=== PATIENT | male | born 1960 | race Caucasian/White ===

== ENCOUNTER 2024-09-03 06:33 | Day surgery (SDC) | payer BC, SELFPAY ==
[2024-09-01 13:24] VITALS: BMI 29.2
--- OUTSIDE RECORDS SUMMARY | 2024-09-02 17:10 | XMS_ITS | Clinical Summary ---
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 Role Phone Unavailable Primary Care Provider Unavailabl e Immunizations Immunization Administration Dates Next Due COVID-19, mRNA (Moderna Spik evax) Seasonal, 50 mcg/0.5 mL (12+) 06/27/2023 Covid-19, mRNA (Pfizer Comir lorenza) Seasonal, 30 mcg/0.3 mL (12+) 06/04/2024,02/13/2024,12/21/2022 Influenza,MDCK,trivalent,PF (Flucelvax) 12/12/19 24 Influenza,injectable,quad,Prsrv Fr 12/19/2022 RSV Recombinant Adjuvant, 0.5 ML (Arexvy) 2024 Zoster (Shingrix) 06/27/2023,04/30/2023 Social History Tobacco Use Types Packs/Day Years Used Date Smoking Tobacco: Never Assessed Intimate Partner Violence Answer Date R ecorded Fear of Current or Ex-Partner Not on file Emotionally Abused Not on file 02/10/2023 Physically Abused Not on file 02/10/2023 Sexually Abused Not on file 02/10/2023 Feel Safe at Home Not on file 02/10/2023 Sex and Gender Information Value Date Recorded Sex Assigned at Not on file Legal Sex Male 7:00 AM EST Gender Identity Not on file Sexual Orientation Not on file Plan of Treatment Health Maintenance Due Date Last Done Comments Hepatitis C Screening 1960 DTaP/Tdap/Td (1 - Tdap) 1980 Colon Cancer Screening 08/03/2007 Pneumococcal 50+ years (1 of 1 - PCV) 2012 Zoster (Shingrix) Completed 06/27/2023, 04/30/2023 Influenza Completed 12/12/2023, 12/19/2022 COVID-19 Vaccine Completed 06/04/2024, , 06/27/2023, Additional history exists RSV Completed 06/04/2024 HPV Vaccine Aged Out No longer eligi ble based on patient's age to complete this topic Hep A Aged Out No longer eligi ble based on patient's age to complete this topic Hep B Aged Out No longer eligi ble based on patient's age to complete this topic Hib Aged Out No longer eligi ble based on patient's age to complete this topic Meningococcal ACWY Aged Out No longer eligible based on patient's age to complete this topic Zoster (Zostavax) Discontinued
[2024-09-03 06:35] VITALS: BP 150/79; PULSE 102; RESP 18; TEMP 35.8; O2SAT 98; BMI 29.5
[2024-09-03] MEDS: Lactated Ringers 1,000 ML 50 ML IVCONT (06:56)
--- NOTE | 2024-09-03 07:26 | MHC.SHP ---
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,screening Details of Present Illness: see H&P no changes Relevant Family History (Specify if Yes): No Relevant Social History: None Medical History: No relevant PMH History of Previous Operations: No relevant previous surgery Allergies: Allergies Allergy/AdvReac Type Severity Reaction Status Date / Time No Known Allergies Allergy Verified 09/01/24 13:24 Review of Systems Sugical H&P ROS: Negative: Constitution, Cardiovascular, Respiratory, Neurological, Psychiatric, Hem-Onc, Allergic/Immunologic, Gastrointestinal, Genitourinary, Musculoskeletal, Integumentary, Endocrine and Eyes/Ears/Nose/Throat Exam Surgical H&P Exam: Normal: HEENT, Normal: Heart, Normal: Lungs, Normal: Extremities, Normal: Abdomen, Normal: Skin and Normal: Neurological Plan Diagnosis/Plan: Unchanged I have reviewed the history and physical and performed a pertinent physical examination on my patient. No changes have occurred unless specified. Time Spent With Patient Time: Total time managing care of this patient today ____ minutes.
--- NOTE | 2024-09-03 07:51 | HO.ANESPROP2 ---
[facility] Past Medical History Medical History HTN (hypertension) History of Fang's esophagus Anxiety and depression GERD (gastroesophageal reflux disease) Renal calculi Functional capacity: independent ambulation Family History Family history of problems with anesthesia: No Surgical History Surgical History Hx of shoulder surgery (09/03/23) Hx of arthroscopy of shoulder Hx of arthroscopy of knee Hx of colonoscopy (~2019) History of esophagogastroduodenoscopy (EGD) (~2022) History of Problems with Anesthesia: No Social History Social History Patient Tobacco Use Status: Never used Tobacco Have you been hit, kicked, punched, or otherwise hurt by someone within the past year? If so, by whom?: No Are you DNR?: No Advance Directives: No Advance Directives Information Provided: Yes Meds Allergies Allergy/AdvReac Type Severity Reaction Status Date / Time No Known Allergies Allergy Verified 09/01/24 13:24 Active Medications: Current Medications Lactated Ringer's (Lr) 1,000 mls @ 50 mls/hr IVCONT .Q20H MANGO Last Admin: 09/03/24 06:56 Dose: 50 mls/hr Home Medications ?Medication ?Instructions ?Recorded ?Confirmed ?Last Taken ?Type B-complex with vitamin C 1 tab PO DAILY 09/01/24 09/01/24 Unknown History cholecalciferol (vitamin D3) 50 50 mcg PO DAILY 09/01/24 09/01/24 Unknown History mcg (2,000 unit) capsule (Vitamin D3) gabapentin 300 mg capsule 300 mg PO TID 09/01/24 09/01/24 09/03/24 History lamotrigine 25 mg tablet 50 mg PO BID 09/01/24 09/01/24 Unknown History losartan 25 mg tablet 25 mg PO DAILY 09/01/24 09/01/24 Unknown History omeprazole 20 mg tablet,delayed 20 mg PO DAILY 09/01/24 09/01/24 09/03/24 History release ondansetron 4 mg disintegrating 4 mg PO Q8H PRN Nausea And Vomiting 09/01/24 09/01/24 Unknown History tablet protriptyline 10 mg tablet 10 mg PO 09/01/24 Unknown History Exam Height,Weight and Vital Signs: Height 5 ft 3 in Weight 75.568 kg Last Vital Signs Temp 96.5 F L 09/03/24 06:35 Pulse 102 H 09/03/24 06:35 Resp 18 09/03/24 06:35 BP 150/79 H 09/03/24 06:35 Pulse Ox 98 09/03/24 06:35 O2 Del Method Room Air 09/03/24 06:35 Airway TM Dist: >3cm Neck ROM: Full Heart: RRR Lungs: CTS Assessment and Plan Assessment Anesthesia Assessment: Anesthesia Plan Discussed Final Anesthetic Review Family History of Problems with Anesthesia: No History of Problems with Anesthesia: No NPO: Yes ASA Class: II Final Preanesthetic Review: Meds/Allgs Chart Reviewed, Consent Obtained/Reviewed and Anes Risks/Benef Reviewed Patient Risk: Low Procedure Risk: Low Anesthetic Plan Anesthetic Plan: MAC: Disposition: Standard PACU
[2024-09-03 08:23] VITALS: BP 104/62; PULSE 99; RESP 16; TEMP 36.6; O2SAT 93
--- NOTE | 2024-09-03 08:27 | PM.OP ---
Brief Operative Note Date of Service: 09/03/24 Pre-op diagnosis: barretts screening Post-op diagnosis: same Procedure: EGD colon Surgeon: Omi Rankin MD Was an Bank Sales And Service Manager used for this Procedure?: No Estimated blood loss (mL): 2 Pathology: other Condition: stable Disposition: PACU
[2024-09-03 08:38] VITALS: BP 118/74; PULSE 87; RESP 16; O2SAT 93
--- NOTE | 2024-09-03 08:50 | HO.POSTANES ---
Post Anesthesia Evaluation Post Anesthesia Evaluation Date of Service: 09/03/24 Vital Signs: Vital Signs Temp Pulse Resp BP Pulse Ox O2 Del Method 09/03/24 08:38 87 16 118/74 93 Room Air 09/03/24 08:23 97.8 F 99 16 104/62 93 Room Air 09/03/24 06:35 96.5 F L 102 H 18 150/79 H 98 Room Air Anesthesia: Monitored Nausea/Vomiting: None Hydration: Adequate Anesthesia-Related Issues: No Anes. Related Issues
[2024-09-03 08:53] VITALS: BP 122/77; PULSE 85; RESP 16; TEMP 36.6; O2SAT 96
--- NOTE | 2024-09-03 08:54 | OP_ITS ---
DATE OF SERVICE: 09/03/2024 SURGEON: Omi Rankin MD INDICATIONS: Colon cancer screening and history of Fang esophagus. PREOPERATIVE DIAGNOSIS: POSTOPERATIVE DIAGNOSIS: PROCEDURE PERFORMED: Upper endoscopy with biopsy, colonoscopy to the terminal ileum with biopsy. ESTIMATED BLOOD LOSS: COMPLICATIONS: ANESTHESIA: Monitored anesthesia care. ASSISTANTS: SPECIMENS: DESCRIPTION OF PROCEDURE: History and physical ws performed. The risks and benefits of the procedure were explained to the patient. Informed consent was obtained. The patient was placed in the left lateral decubitus position. The Olympus video gastroscope was introduced into the esophagus, stomach, and duodenum. Examination was performed. The scope was removed. He was repositioned for colonoscopy. A digital rectal exam was performed and was found to be normal. The Olympus pediatric video colonoscope was introduced into the rectum and advanced to the cecum. The cecum was identified by transillumination, palpation, and identification of ileocecal valve. Examination was performed. The scope was removed. He tolerated both procedures well, returned to recovery area in stable condition. FINDINGS: Upper endoscopy: Esophagus: The esophagus showed an irregular EG junction. This was biopsied. Stomach: Stomach showed no evidence of masses or ulcers. There were several benign appearing gastric polyps in the body and fundus consistent with fundic gland polyps, two of these were biopsied. Duodenum: The bulb and 2nd portion were normal. Colonoscopy: The terminal ileum was examined and appeared normal. The visualized colonic mucosa was normal. The quality of prep was good. Two polyps were identified and removed with biopsy forceps, both measured less than 5 mm. These were located at 60 and 40 cm. Retroflexed examination showed some small internal hemorrhoids. IMPRESSION: 1. Fang esophagus. 2. Colon polyps. RECOMMENDATION: Follow up the biopsy results. MD KELVIN Wang/BINGL / [id number]
== END 2024-09-03 09:22 | disposition home or self-care (01) ==
PROVIDERS: PCP Physician Assistant; Visit Provider Internal Medicine Gastroenterology
PROC: (CPT 45380; principal; 2024-09-03 07:30)
DX: Z12.11 Encounter for screening for malignant neoplasm of colon (principal); Z86.0101 Personal history of adenomatous and serrated colon polyps; Z83.719 Family history of colon polyps, unspecified; D12.4 Benign neoplasm of descending colon; D12.5 Benign neoplasm of sigmoid colon; K64.8 Other hemorrhoids; Z87.19 Personal history of other diseases of the digestive system; K21.9 Gastro-esophageal reflux disease without esophagitis; D3A.092 Benign carcinoid tumor of the stomach; K31.7 Polyp of stomach and duodenum; K22.89 Other specified disease of esophagus; I10 Essential (primary) hypertension; F41.9 Anxiety disorder, unspecified; Z87.442 Personal history of urinary calculi; Z79.899 Other long term (current) drug therapy; Z98.890 Other specified postprocedural states
CPT/HCPCS: 45380; 43239; 88305; 88313; 88341; 88342; 88360; J2704

== ENCOUNTER 2024-09-22 11:51 | Day surgery (SDC) | payer BC, SELFPAY ==
--- OUTSIDE RECORDS SUMMARY | 2024-09-14 13:41 | XMS_ITS | Clinical Summary ---
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
[2024-09-20 14:42] VITALS: BMI 29.2
[2024-09-22 12:17] VITALS: BMI 29.7
[2024-09-22 12:34] VITALS: BP 152/91; PULSE 92; RESP 15; TEMP 36.5; O2SAT 95
[2024-09-22] MEDS: Lactated Ringers 1,000 ML 100 ML IVCONT (12:36)
--- NOTE | 2024-09-22 12:44 | HO.ANESPROP2 ---
Documented by User: Sidra Pop NP 09/20/24 14:19 HPI - Anesthesia Eval Consult details Narrative: 64yo M for Upper Endoscopy with polypectomy PMFSH Past Medical History Medical History HTN (hypertension) History of Fang's esophagus Anxiety and depression GERD (gastroesophageal reflux disease) Renal calculi Family History Family history of problems with anesthesia: No Surgical History Surgical History Hx of shoulder surgery (09/03/23) Hx of arthroscopy of shoulder Hx of arthroscopy of knee Hx of colonoscopy (~2019) History of esophagogastroduodenoscopy (EGD) (~2022) History of Problems with Anesthesia: No Social History Social History Patient Tobacco Use Status: Never used Tobacco Use of substances other than those prescribed or required for medical reasons: No Are you DNR?: No Advance Directives: No Advance Directives Information Provided: Yes Meds Allergies Allergy/AdvReac Type Severity Reaction Status Date / Time No Known Allergies Allergy Verified 09/22/24 12:16 Home Medications ?Medication ?Instructions ?Recorded ?Confirmed ?Last Taken ?Type B-complex with vitamin C 1 tab PO DAILY 09/01/24 09/20/24 Unknown History cholecalciferol (vitamin D3) 50 50 mcg PO DAILY 09/01/24 09/20/24 Unknown History mcg (2,000 unit) capsule (Vitamin D3) gabapentin 300 mg capsule 300 mg PO TID 09/01/24 09/20/24 09/03/24 History lamotrigine 25 mg tablet 50 mg PO BID 09/01/24 09/20/24 Unknown History losartan 25 mg tablet 25 mg PO DAILY 09/01/24 09/20/24 Unknown History omeprazole 20 mg tablet,delayed 20 mg PO DAILY 09/01/24 09/20/24 09/22/24 08:00 History release ondansetron 4 mg disintegrating 4 mg PO Q8H PRN Nausea And Vomiting 09/01/24 09/20/24 Unknown History tablet protriptyline 10 mg tablet 10 mg PO BID 09/01/24 09/20/24 Unknown History Assessment and Plan Assessment Anesthesia Assessment: Chart Reviewed Final Anesthetic Review Family History of Problems with Anesthesia: No History of Problems with Anesthesia: No Documented by User: Marisol Paul DO 09/22/24 12:45 PMFSH Past Medical History Medical History HTN (hypertension) History of Fang's esophagus Anxiety and depression GERD (gastroesophageal reflux disease) Renal calculi Family History Family history of problems with anesthesia: No Surgical History Surgical History Hx of shoulder surgery (09/03/23) Hx of arthroscopy of shoulder Hx of arthroscopy of knee Hx of colonoscopy (~2019) History of esophagogastroduodenoscopy (EGD) (~2022) History of Problems with Anesthesia: No Social History Social History Patient Tobacco Use Status: Never used Tobacco Use of substances other than those prescribed or required for medical reasons: No Are you DNR?: No Advance Directives: No Advance Directives Information Provided: Yes Meds Allergies Allergy/AdvReac Type Severity Reaction Status Date / Time No Known Allergies Allergy Verified 09/22/24 12:16 Home Medications ?Medication ?Instructions ?Recorded ?Confirmed ?Last Taken ?Type B-complex with vitamin C 1 tab PO DAILY 09/01/24 09/20/24 Unknown History cholecalciferol (vitamin D3) 50 50 mcg PO DAILY 09/01/24 09/20/24 Unknown History mcg (2,000 unit) capsule (Vitamin D3) gabapentin 300 mg capsule 300 mg PO TID 09/01/24 09/20/24 09/03/24 History lamotrigine 25 mg tablet 50 mg PO BID 09/01/24 09/20/24 Unknown History losartan 25 mg tablet 25 mg PO DAILY 09/01/24 09/20/24 Unknown History omeprazole 20 mg tablet,delayed 20 mg PO DAILY 09/01/24 09/20/24 09/22/24 08:00 History release ondansetron 4 mg disintegrating 4 mg PO Q8H PRN Nausea And Vomiting 09/01/24 09/20/24 Unknown History tablet protriptyline 10 mg tablet 10 mg PO BID 09/01/24 09/20/24 Unknown History Exam Exam Date and Time: 09/22/24 1240 Height,Weight and Vital Signs: Height 5 ft 3 in Weight 76 kg Vital Signs Temperature 97.7 F 09/22/24 12:34 Pulse Rate 92 09/22/24 12:34 Respiratory Rate 15 09/22/24 12:34 Blood Pressure 152/91 H 09/22/24 12:34 Pulse Oximetry 95 09/22/24 12:34 Oxygen Delivery Method Room Air 09/22/24 12:34 Temperature 97.7 F 09/22/24 12:34 Pulse Rate 92 09/22/24 12:34 Respiratory Rate 15 09/22/24 12:34 Blood Pressure 152/91 H 09/22/24 12:34 Pulse Oximetry 95 09/22/24 12:34 Oxygen Delivery Method Room Air 09/22/24 12:34 Airway Mallampati Class: I TM Dist: >3cm Neck ROM: Full Loose/Missing/Broken Teeth: No (patient denies any loose or broken teeth) Heart: S1S2 Lungs: CTAB Assessment and Plan Assessment Anesthesia Assessment: Anesthesia Plan Discussed and Chart Reviewed Final Anesthetic Review Family History of Problems with Anesthesia: No History of Problems with Anesthesia: No NPO: Yes ASA Class: II Final Preanesthetic Review: No Changes in Pt Med Stat, Meds/Allgs Chart Reviewed, Consent Obtained/Reviewed and Anes Risks/Benef Reviewed Patient Risk: Low Procedure Risk: Low Anesthetic Plan Anesthetic Plan: MAC: and Agree w/ Assess. and Plan Disposition: Standard PACU
--- NOTE | 2024-09-22 13:12 | MHC.SHP ---
Pre-Procedural Eval Section A - 24 Hr Update-Section A only Date of Service: 09/22/24 The patient is an INPATIENT: No Changes since office visit: Yes Cold of Flu in the past 2 weeks, Yes New Medical Problems, Yes Changes in Medication and Yes Patient answered all questions The patient has been examined within 24 hours of the surgical procedure. 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 No changes have occurred unless specified. Time Spent With Patient Time: Total time managing care of this patient today ____ minutes.
[2024-09-22 13:45] VITALS: BP 123/79; PULSE 92; TEMP 36.2; O2SAT 96
[2024-09-22 14:00] VITALS: BP 135/84; PULSE 81; RESP 18; TEMP 36.2; O2SAT 97
--- NOTE | 2024-09-22 21:57 | OP_ITS ---
DATE OF SERVICE: 09/22/2024 SURGEON: Omi Rankin MD INDICATIONS: Gastric neuroendocrine tumor (carcinoid). PREOPERATIVE DIAGNOSIS: POSTOPERATIVE DIAGNOSIS: PROCEDURE PERFORMED: Upper endoscopy with snare polypectomy and biopsy. ESTIMATED BLOOD LOSS: COMPLICATIONS: ANESTHESIA: Monitored anesthesia care. ASSISTANTS: SPECIMENS: DESCRIPTION OF PROCEDURE: A history and physical was performed. The risks and benefits of the procedure were explained to the patient. Informed consent was obtained. The Olympus video gastroscope was introduced into the . Examination was performed. The scope was removed. He tolerated the procedure well and was returned to the recovery area in stable condition. FINDINGS: Esophagus: The esophagus was normal. There was no esophagitis. The EG junction was regular. No biopsies were obtained as this had been biopsied at the earlier endoscopy. Stomach: The stomach showed multiple benign-appearing flat to slightly raised polyps in the body and fundus with no obvious malignant-appearing lesions. These were removed using a combination of cold snare and biopsy forceps. Polyps were located as noted on the pathology requisition. A total of 9 polyps were removed, all measured less than 10 mm. Duodenum: The bulb and 2nd portion were normal. IMPRESSION: 1. Gastric neuroendocrine tumor. 2. Gastric polyps. RECOMMENDATION: Follow up the biopsy results. MD KELVIN Wang/NICOLE / [id number]
== END 2024-09-22 14:31 | disposition home or self-care (01) ==
PROVIDERS: PCP Physician Assistant; Visit Provider Internal Medicine Gastroenterology
PROC: 0DJ08ZZ Inspection of Upper Intestinal Tract, Via Natural or Artificial Opening Endoscopic (ICD-10-PCS; CPT 43235; principal; 2024-09-22 13:00)
DX: C7A.092 Malignant carcinoid tumor of the stomach (principal); K31.7 Polyp of stomach and duodenum; K22.70 Barrett's esophagus without dysplasia; I10 Essential (primary) hypertension; K21.9 Gastro-esophageal reflux disease without esophagitis; F41.8 Other specified anxiety disorders; Z87.442 Personal history of urinary calculi; Z79.899 Other long term (current) drug therapy
CPT/HCPCS: 43251; 88305; J2704

== ENCOUNTER → 2024-10-14 13:16 | Outpatient (BNV) | payer BC, SELFPAY | PROVIDERS: PCP Physician Assistant; Referring Provider Internal Medicine Gastroenterology; Visit Provider Internal Medicine | DX: C7A.092 Malignant carcinoid tumor of the stomach (principal) | CPT/HCPCS: 99204 ==